=== PATIENT | male | born 1960 | race American Indian/Alaskan Native ===

== ENCOUNTER 2016-06-03 15:50 | Inpatient (IN) | payer MEDICARE, OTHER ==
--- NOTE | 2016-06-03 16:19 | Emergency Department Report ---
Chief Complaint: Extremity Problem,Nontraumatic Stated Complaint: POSS BLOOD CLOT - HPI History of Present Illness: Patient states sent here by his for possible blood clot in left leg. States having leg leg pain and swelling x about 1 week. - Exam Vital Signs: Vital Signs 06/03/16 16:00 Temperature 98.6 F Pulse Rate 78 Respiratory 20 Rate Blood Pressure 154/92 O2 Sat by Pulse 97 Oximetry Physical Exam: General: NAD. Extremity: Left calf tenderness. Mild pitting edema compared to right. MSE screening note: Focused history and physical exam performed. Due to findings the following was ordered: ED Medical Decision Making - Medical Decision Making Patient to see MD in main ED. ED Disposition for MSE Condition: Stable
[2016-06-03 16:46] LABS: Basophils % (Auto) 0.6 % (0.0-1.8); Eosinophils % (Auto) 4.6 % (0.0-4.3); Hematocrit 34.9 % (35.5-45.6); Hemoglobin 11.4 gm/dl (11.8-15.2); Mean Corpuscular HGB Conc 33 % (32-34); Mean Corpuscular Hemoglobin 30 pg (28-32); Mean Corpuscular Volume 91 fl (84-94); Platelet Count 185 K/mm3 (140-440); Red Blood Count 3.86 M/mm3 (3.65-5.03); Red Cell Distribution Width 13.6 % (13.2-15.2); White Blood Count 8.8 K/mm3 (4.5-11.0)
[2016-06-03 16:57] LABS: INR 1.16 (0.87-1.13); Partial Thromboplastin Time 29.4 Sec. (24.2-36.6)
[2016-06-03 17:05] LABS: Alanine Aminotransferase 15 units/L (7-56); Albumin 3.9 g/dL (3.9-5); Alkaline Phosphatase 46 units/L (35-129); BUN/Creatinine Ratio 16.25; Bilirubin,Total 0.4 mg/dL (0.1-1.2); Blood Urea Nitrogen 13 mg/dL (9-20); Calcium 8.9 mg/dL (8.4-10.2); Carbon Dioxide 25 mmol/L (22-30); Chloride 100.4 mmol/L (98-107); Glucose 106 mg/dL (75-100); Potassium 4.2 mmol/L (3.6-5.0); Sodium 138 mmol/L (137-145); Total Protein 7.9 g/dL (6.3-8.2)
[2016-06-03 17:08] LABS: Anion Gap 17 mmol/L
--- NOTE | 2016-06-03 19:54 | Emergency Department Report ---
ED General Adult HPI - General Chief complaint: Extremity Problem,Nontraumatic Stated complaint: POSS BLOOD CLOT Time Seen by Provider: 06/03/16 19:51 Source: patient, old records reviewed Mode of arrival: Ambulatory Limitations: No Limitations - History of Present Illness Initial comments: This is a 55-year-old male, previously unknown to me. His primary care doctor is Dr. Pascale Wood. He is sent to the ER to rule out left lower extremity DVT. He presents to the ER complaining atraumatic left lower extremity pain and swelling for the past week. The pain is sharp. It increases with palpation and range of motion, and decreases with rest. Pain is in the left posterior calf. No hematemesis, no bright red blood per rectum, no history of intracranial hemorrhage. There is no chest pain, there is no shortness of breath. No recent trips greater than 4 hours, no recent hospital admissions. Patient reports a family history of DVT, secondary to surgeries, but as far as he knows, no one in his family has had an unprovoked lower extremity DVT. On review of systems, the patient admits to epigastric and upper quadrant abdominal pain, which she describes as "gas", present for the past 2 weeks. It worsens when he eats, and decreases when he "rubs my stomach." There is no lower abdominal pain. -: Gradual Location: right, lower extremity Severity scale (0 -10): 10 Quality: aching Consistency: intermittent Improves with: rest Worsens with: movement Associated Symptoms: denies: confusion, chest pain, cough, diaphoresis, fever/ chills, headaches, loss of appetite, malaise, nausea/vomiting, rash, seizure, shortness of breath, syncope, weakness - Related Data Home Medications Medication Instructions Recorded Confirmed Last Taken Losartan [Cozaar] 25 mg PO QDAY 06/04/16 06/04/16 Unknown Allergies Allergy/AdvReac Type Severity Reaction Status Date / Time honey AdvReac Nausea Verified 05/07/15 17:54 ED Review of Systems ROS: Stated complaint: POSS BLOOD CLOT Other details as noted in HPI Constitutional: denies: fever Eyes: denies: vision change ENT: denies: epistaxis Respiratory: see HPI Cardiovascular: denies: chest pain Gastrointestinal: abdominal pain. denies: melena, hematochezia Genitourinary: denies: urgency, dysuria Musculoskeletal: arthralgia, myalgia Skin: denies: rash, lesions Neurological: denies: headache, weakness, paresthesias ED Past Medical Hx - Past Medical History Hx Hypertension: Yes Additional medical history: fractured neck, cervical radiculopathy - Surgical History Additional Surgical History: neck surgery x 2 - Social History Smoking Status: Never Smoker Substance Use Type: Alcohol, Prescribed - Medications Home Medications: Home Medications Medication Instructions Recorded Confirmed Last Taken Type Losartan [Cozaar] 25 mg PO QDAY 06/04/16 06/04/16 Unknown History ED Physical Exam - General Limitations: No Limitations, Physical Limitation General appearance: alert, in no apparent distress - Head Head exam: Present: atraumatic, normocephalic - Eye Eye exam: Present: normal appearance, EOMI. Absent: nystagmus - ENT ENT exam: Present: normal exam, normal orophraynx, mucous membranes moist - Neck Neck exam: Present: normal inspection, full ROM. Absent: tenderness, meningismus - Respiratory Respiratory exam: Present: normal lung sounds bilaterally. Absent: respiratory distress, wheezes, rales, rhonchi, stridor, chest wall tenderness - Cardiovascular Cardiovascular Exam: Present: regular rate, normal rhythm, normal heart sounds. Absent: bradycardia, tachycardia, irregular rhythm, systolic murmur, diastolic murmur, rubs, gallop - GI/Abdominal GI/Abdominal exam: Present: soft, normal bowel sounds. Absent: distended, tenderness, guarding, rebound, rigid, pulsatile mass - Rectal Rectal exam: Present: deferred - Extremities Exam Extremities exam: Present: full ROM, tenderness, normal capillary refill, calf tenderness, other (the right lower extremity is within normal limits. The bilateral upper extremities are within normal limits. There are 2+ pulses and for hemorrhage. The left calf is tender. It is slightly swollen. The compartments are soft. There is no pain with passive range of motion of the great toe.). Absent: pedal edema, joint swelling - Back Exam Back exam: Present: normal inspection, full ROM. Absent: tenderness, CVA tenderness (R), CVA tenderness (L), muscle spasm - Neurological Exam Neurological exam: Present: alert, oriented X3, other (Extraocular movements intact. Tongue midline. No facial droop. Facial sensation intact to light touch in the V1, V2, V3 distribution bilaterally. 5 and 5 strength in 4 extremities.. Sensation is intact to light touch in 4 extremities.). Absent: motor sensory deficit - Psychiatric Psychiatric exam: Present: normal affect, normal mood - Skin Skin exam: Present: warm, dry, intact, normal color. Absent: rash ED Course Vital Signs 06/03/16 06/03/16 06/03/16 16:00 19:46 19:53 Temperature 98.6 F 98.1 F Pulse Rate 78 79 Respiratory 20 18 Rate Blood Pressure 154/92 Blood Pressure 149/82 [Left] O2 Sat by Pulse 97 100 100 Oximetry 06/03/16 06/03/16 06/03/16 20:00 21:00 22:35 Temperature Pulse Rate 76 74 Respiratory 14 13 Rate Blood Pressure 147/86 163/89 Blood Pressure [Left] O2 Sat by Pulse 100 100 100 Oximetry 06/03/16 06/03/16 06/04/16 23:00 23:02 00:01 Temperature Pulse Rate Respiratory Rate Blood Pressure 153/84 147/86 140/82 Blood Pressure [Left] O2 Sat by Pulse 100 100 99 Oximetry 06/04/16 01:00 Temperature Pulse Rate Respiratory Rate Blood Pressure 144/82 Blood Pressure [Left] O2 Sat by Pulse 100 Oximetry - Reevaluation(s) Reevaluation #1: 06/03/16 20:37 Differential diagnosis: Left lower extremity DVT, IVC thrombosis, iliac vein thrombosis, pulmonary and was, GERD/gastritis Assessment and plan: [id number] male with unprovoked left lower extremity DVT , does not have any contraindications to systemic anticoagulation. On review of systems he describes nonspecific abdominal pain. His abdomen is nontender, but given that he has an unprovoked lower extremity DVT, we will obtain CAT scan of the chest, abdomen, pelvis to exclude occult thromboembolic disease. Assuming CAT scans do not demonstrate any significant disease, he will be discharged with systemic anticoagulation. I have discussed the case with Dr. Bah, the product safety professional superintendent transportation. She recommends initiation of Lovenox, 1 mg /kg twice daily, and reports that she can see the patient this Wednesday in the [place] office. Reevaluation #2: 06/04/16 01:12 ct shows multiple pulmonary emboli ct abd pelvis suggest pancreatic mass patient to be admitted Dr Burch accepts patient ED Medical Decision Making - Lab Data Result diagrams: 06/03/16 16:27 06/03/16 16:27 Vital Signs 06/03/16 06/03/16 16:00 19:53 Temperature 98.6 F 98.1 F Pulse Rate 78 79 Respiratory 20 21 Rate Blood Pressure 154/92 Blood Pressure 149/82 [Left] O2 Sat by Pulse 97 100 Oximetry Lab Results 06/03/16 06/03/16 06/03/16 Range/Units 16:15 16:27 16:27 WBC 8.8 (4.5-11.0) K/mm3 RBC 3.86 (3.65-5.03) M/mm3 Hgb 11.4 L (11.8-15.2) gm/dl Hct 34.9 L (35.5-45.6) % MCV 91 (84-94) fl MCH 30 (28-32) pg MCHC 33 (32-34) % RDW 13.6 (13.2-15.2) % Plt Count 185 (140-440) K/mm3 Lymph % (Auto) 28.6 (13.4-35.0) % Sabine % (Auto) 8.9 H (0.0-7.3) % Eos % (Auto) 4.6 H (0.0-4.3) % Baso % (Auto) 0.6 (0.0-1.8) % Lymph # 2.5 (1.2-5.4) K/mm3 Sabine # 0.8 (0.0-0.8) K/mm3 Eos # 0.4 (0.0-0.4) K/mm3 Baso # 0.0 (0.0-0.1) K/mm3 Seg Neutrophils % 57.3 (40.0-70.0) % Seg Neutrophils # 5.1 (1.8-7.7) K/mm3 PT 14.7 (12.2-14.9) Sec. INR 1.16 H (0.87-1.13) APTT 29.4 (24.2-36.6) Sec. Sodium (137-145) mmol/L Potassium (3.6-5.0) mmol/L Chloride (98-107) mmol/L Carbon Dioxide (22-30) mmol/L Anion Gap mmol/L BUN (9-20) mg/dL Creatinine (0.8-1.5) mg/dL Estimated GFR ml/min BUN/Creatinine Ratio % Glucose (75-100) mg/dL Calcium (8.4-10.2) mg/dL Total Bilirubin (0.1-1.2) mg/dL AST (5-40) units/L ALT (7-56) units/L Alkaline Phosphatase (35-129) units/L Total Protein (6.3-8.2) g/dL Albumin (3.9-5) g/dL Albumin/Globulin Ratio % Blood Type O POSITIVE Antibody Screen Negative 06/03/16 Range/Units 16:27 WBC (4.5-11.0) K/mm3 RBC (3.65-5.03) M/mm3 Hgb (11.8-15.2) gm/dl Hct (35.5-45.6) % MCV (84-94) fl MCH (28-32) pg MCHC (32-34) % RDW (13.2-15.2) % Plt Count (140-440) K/mm3 Lymph % (Auto) (13.4-35.0) % Sabine % (Auto) (0.0-7.3) % Eos % (Auto) (0.0-4.3) % Baso % (Auto) (0.0-1.8) % Lymph # (1.2-5.4) K/mm3 Sabine # (0.0-0.8) K/mm3 Eos # (0.0-0.4) K/mm3 Baso # (0.0-0.1) K/mm3 Seg Neutrophils % (40.0-70.0) % Seg Neutrophils # (1.8-7.7) K/mm3 PT (12.2-14.9) Sec. INR (0.87-1.13) APTT (24.2-36.6) Sec. Sodium 138 (137-145) mmol/L Potassium 4.2 (3.6-5.0) mmol/L Chloride 100.4 (98-107) mmol/L Carbon Dioxide 25 (22-30) mmol/L Anion Gap 17 mmol/L BUN 13 (9-20) mg/dL Creatinine 0.8 (0.8-1.5) mg/dL Estimated GFR > 60 ml/min BUN/Creatinine Ratio 16.25 % Glucose 106 H (75-100) mg/dL Calcium 8.9 (8.4-10.2) mg/dL Total Bilirubin 0.4 (0.1-1.2) mg/dL AST 17 (5-40) units/L ALT 15 (7-56) units/L Alkaline Phosphatase 46 (35-129) units/L Total Protein 7.9 (6.3-8.2) g/dL Albumin 3.9 (3.9-5) g/dL Albumin/Globulin Ratio 1.0 % Blood Type Antibody Screen - Radiology Data Radiology results: report reviewed LIVE [facility] [place],JOSH Domingo JR Male : 1960 MedRec# [id number] 06/03/16 16:58 - Radiology Dept. Note by TREV ROBERTSON Acct Num: [id number] : 1960 Patient Age: 55 VASCULAR LAB PRELIMINARY REPORT LLE VENOUS DOPPLER COMPLETED ACUTE DVT NOTED IN LT POP V EXTENDING TO PERONEAL V ER RANCH HAND (BHAVYA) INFORMED Initialized on 06/03/16 16:58 - END OF NOTE Critical care attestation.: If time is entered above; I have spent that time in minutes in the direct care of this critically ill patient, excluding procedure time. ED Disposition Clinical Impression: DVT (deep venous thrombosis), Pulmonary embolism, Pancreatic mass Disposition: OP ADMITTED IP TO THIS HOSP Is pt being admited?: Yes Does the pt Need Aspirin: No Condition: Good Instructions: Deep Venous Thrombosis (ED) Additional Instructions: Ultrasound of the left lower extremity demonstrated acute DVT/blood clot in the leg. Take the Lovenox medication as directed. This medication increases her risk for internal bleeding. Risks include bleeding in the brain, bleeding in the intestines, which can be dangerous or life-threatening. Therefore, do not take medications such as aspirin, ibuprofen, Motrin or Aleve. Avoid contact sports, and avoid consumption of alcohol. It is very important that he follow-up with the outpatient product safety professional, Dr. Bah. She would like to see you in the office this Wednesday in the office. Contact information is as follows: [facility] [address] [facility] [address], [place] [address] Not following up in a timely fashion may result in an undiagnosed tumor/cancer/ emergency which can be a cause of left lower extremity DVT. Therefore, please make certain to follow-up with her in a timely fashion. Return to the ER right away with headache, chest pain, abdominal pain, shortness of breath, vomiting blood, defecating blood, change in mental status, projectile vomiting. Referrals: PRIMARY CARE, [Primary Care Provider] - 3-5 Days RAFIF BAH MD [Staff Physician] - 3-5 Days
[2016-06-03] MEDS ORDERED: ROXICODONE PO ONE (20:02)
[2016-06-03] MEDS ORDERED: NACL 0.9% 1000 ML 1,000 ML IV ONE (20:02)
[2016-06-03] MEDS ORDERED: NACL ONE (20:29)
[2016-06-03] MEDS ORDERED: LOVENOX SUB-Q STA (22:29)
--- NOTE | 2016-06-04 00:04 | Cat Scan Report ---
FINAL REPORT EXAM: CT ANGIO CHEST HISTORY: lle dvt ? pe TECHNIQUE: Spiral CTA of the chest after the uneventful administration of IV contrast. Multiplanar reformations. PRIORS: None. FINDINGS: Chest: Multiple endoluminal filling defects in the bilateral interlobar or segmental and subsegmental pulmonary arteries, most pronounced in the left lower lobe. Main pulmonary trunk normally opacified. No apparent aneurysm, pseudoaneurysm or aortic dissection. No significant lymph node enlargement or axillary adenopathy. Lungs show mild and patchy, somewhat rounded and pleural-based opacities in the left posterior lung base. No discrete parenchymal mass, other focal consolidation or pleural effusions. No apparent pneumothorax. Upper abdomen will be evaluated on dedicated CT abdomen and pelvis examination of same date. IMPRESSION: 1. Findings compatible bilateral pulmonary emboli. Mild clot burden. 2. Findings which may represent patchy left basilar atelectasis, mild infiltrate or possible parenchymal infarct. Clinical correlation and followup suggested. Dr. Prado discussed results with Dr. Eldridge on 03 June 2016 at approximately 2357 hours EST.
--- NOTE | 2016-06-04 00:15 | Cat Scan Report ---
FINAL REPORT EXAM: CT ABDOMEN PELVIS W CON HISTORY: lle dvt abd pain TECHNIQUE: Spiral CT scanning of the abdomen and pelvis after the uneventful administration of IV contrast. Multiplanar reformations. PRIORS: None. FINDINGS: Abdomen: Visualized lung bases reported on CTA chest examination of same date. No radiopaque gallstones. Small and subtle, hypodense foci in right and left lobes, largest in left lobe measuring 6-7 mm, nonspecific. Spleen without significant abnormality. Ill-defined and possibly multifocal, hypodense mass involving most of pancreatic head and extending into the uncinate process difficult to measure, but approximating 3 x 3 cm in the anterior head and 3.5 x 2 cm in the uncinate process, respectively. Pancreatic duct dilatation noted distal to this region measuring up to 6-7 mm in diameter. Loss of normal fat planes in adjacent pancreaticoduodenal region. Enlarged lymph nodes in the surrounding central mesentery measuring up to 2 cm in maximal diameter. Right renal cysts x2, largest measuring 2.7 cm. Left kidney grossly unremarkable. Adrenal glands without significant abnormality. Pelvis: Bowel grossly unremarkable. Appendix is not confidently identified. No significant free peritoneal fluid or discrete abscess. Abdominal aorta non-aneurysmal. Punctate, metallic density in left paraspinal musculature at approximate L3-4 level may represent retained foreign body or possible postsurgical change. IMPRESSION: 1. Ill-defined and heterogeneous soft tissue mass in pancreatic head and uncinate process, with distal pancreatic duct dilatation and adenopathy in the surrounding central mesentery. Clinical correlation and followup suggested. 2. Subtle, subcentimeter hypodense foci x2 in the liver of uncertain etiology or significance. However, metastatic disease cannot be completely excluded. 3. Right renal cysts. Dr. Prado discussed results with Dr. Eldridge on 03 June 2016 at approximately 2357 hours. EST.
[2016-06-04] MEDS ORDERED: MORPHINE IV ONE (00:25)
--- NOTE | 2016-06-04 01:33 | Admit Criteria Form ---
Admission Criteria Documentation: DEEP VENOUS THROMBOSIS OF LOWER EXTREMITIES Clinical Indications for Admission to Inpatient Care ( Place 'X' for any and all applicable criteria): Admission is indicated for ANY ONE of the following (1)(2)(3)(4): [ X]I. Documented extensive thrombosis (e.g., clot in vena cava or above iliofemoral bifurcation) [ ]II. Limb-threatening thrombosis (e.g., phlegmasia cerulea dolens) [ ]III. Active bleeding [ ]IV. Recent surgery (e.g., within 6 weeks) [ ]V. Active peptic ulcer disease [ ]. Thrombosis while on anticoagulation [ ]VII. [ ]VIII. Appropriate monitoring and therapy cannot be provided in home or outpatient setting [ ]IX. Thrombolysis (e.g., catheter-directed) or pharmaco mechanical thrombectomy needed (3) [ ]X. Vena cava filter placement planned (3) [ ]XI. Severely diminished cardiopulmonary reserve (e.g., pulmonary hypertension) [ ]XII. Severe renal failure (e.g., GFR less than 30 mL/min/1.73m2 (0.5 mL/sec /1.73m2)) [ ]XIII. Known clotting abnormality or deficiency (antithrombin III, protein C , or protein S) [ ]XIV. History of heparin-induced thrombocytopenia [ ]XV . Personal or family history of bleeding tendency or familial bleeding disorder that requires inpatient admission rather than observation care (Also use Deep Venous Thrombosis of Lower Extremities: Observation Care as appropriate) because of ANY ONE of the following: [ ]a) Significant allergic, autoimmune (thrombocytopenia), or coagulopathic reaction occurs in response to anticoagulation [ ]b) Other significant finding or clinical condition judged not to be within the scope of observation care Extended stay beyond goal length of stay may be needed for(1)(19): [ ]a) Hemorrhage or recent surgery(3) [ ]b) Inadequate oral anticoagulation [ ]c) Recurrent thromboembolism(3) [ ]d) Heparin-induced thrombocytopenia(14) The original [facility] content created by [facility] has been revised. The portions of the content which have been revised are identified through the use of italic text or in bold, and [facility] has neither reviewed nor approved the modified material. All other unmodified content is copyright [facility]. Please see references footnoted in the original [facility] edition 2016 Admission Criteria Met: Yes
[2016-06-04] MEDS ORDERED: TYLENOL PO PRN (02:26)
[2016-06-04] MEDS ORDERED: D50W (25GM) IV PRN (02:26)
[2016-06-04] MEDS ORDERED: MILK OF MAGNESIA PO PRN (02:26)
[2016-06-04] MEDS ORDERED: ZOFRAN IV PRN (02:26)
[2016-06-04] MEDS ORDERED: DULCOLAX PR PRN (02:26)
--- NOTE | 2016-06-04 03:10 | History and Physical Report ---
History of Present Illness Date of examination: 06/04/16 Date of admission: 06/04/16 02:26 History of present illness: 55-year-old man history of hypertension, diabetes comes emergency room with complaints of shortness of breath and left pleuritic chest pain 2 weeks. He is also have been having leg pain bilateral 2 months, his symptoms worsened over the last few days, he had difficulty ambulating. stated that his legs of become swollen. He had recent travel to [place], he was evaluated there and was discharged from the emergency room. He was seen by his primary care physician today who sent him to the emergency room for Doppler of the lower extremity which came back positive for DVT Patient denies palpitation, cough, abdominal pain, hematochezia, dysuria, frequency, focal weakness, dysarthria, fever chills, polydipsia polyuria, hot or cold intolerance, easy bruisability, or rash or bleeding from mucosal membrane, rhinorrhea, epistaxis, earache, tinnitus, blurry vision, eye discharge , anxiety, depression. Other review of systems negative PAST SURGICAL HISTORY: Neck Surgery, appendectomy SOCIAL HISTORY: Denies alcohol, tobacco, drugs FAMILY HISTORY: Hypertension Medications and Allergies Allergies Allergy/AdvReac Type Severity Reaction Status Date / Time honey AdvReac Nausea Verified 05/07/15 17:54 Home Medications Medication Instructions Recorded Confirmed Last Taken Type Losartan [Cozaar] 25 mg PO QDAY 06/04/16 06/04/16 Unknown History Active Meds: Active Medications Acetaminophen (Tylenol) 650 mg PO Q4H PRN PRN Reason: Pain MILD(1-3)/Fever >100.5/TIDWELL Bisacodyl (Dulcolax) 10 mg ND QDAY PRN PRN Reason: Constipation unrelieved by MOM Dextrose (D50w (25gm)) 50 ml IV PRN PRN PRN Reason: Hypoglycemia Insulin Aspart (Novolog) 0 units SUB-Q ACHS CATHERINE PRN Reason: Protocol Magnesium Hydroxide (Milk Of Magnesia) 30 ml PO Q4H PRN PRN Reason: Constipation Morphine Sulfate (Morphine) 2 mg IV Q4H PRN PRN Reason: Pain, Moderate (4-6) Ondansetron HCl (Zofran) 4 mg IV Q8H PRN PRN Reason: N/V unrelieved by Reglan Exam - Physical Exam Narrative exam: Gen. appearance: Patient lying in bed, no apparent distress HEENT: Normocephalic, atraumatic, pupils equally round and reactive to light, extraocular movement intact, and no sclericterus,. No JVD or thyromegaly or nodule,neck supple, no carotid bruit ,mucous membranes moist, no exudate or erythema Heart: S1, S2, regular rate and rhythm Lungs: Clear to auscultation bilaterally, breathing comfortable Abdomen: Positive bowel sounds, nontender, nondistended, no organomegaly Extremity: Left leg swelling, warm to touch ,no cyanosis, clubbing Skin: No rash, nodules, warm, dry Neuro: Oriented 3, cranial nerves II-12 intact, speech is fluent, motor and sensory intact - Constitutional Vitals: Temp Pulse Resp BP Pulse Ox 98.1 F 74 13 144/82 100 06/03/16 19:53 06/03/16 21:00 06/03/16 21:00 06/04/16 01:00 06/04/16 01:00 Results - Labs CBC & Chem 7: 06/03/16 16:27 06/03/16 16:27 - Imaging and Cardiology EKG: image reviewed CT scan - abdomen: report reviewed CT scan - chest: report reviewed CT scan - pelvis: report reviewed Assessment and Plan Acute bilateral pulmonary emboli/DVT Hypertension Diabetes type 2 Start full dose Lovenox Check fingersticks initiate insulin sliding scale, start IV morphine Continue appropriate outpatient medications
[2016-06-04] MEDS ORDERED: TORADOL IV ONE (04:30)
[2016-06-04] MEDS ORDERED: LOVENOX SUB-Q SCH (10:00)
[2016-06-04] MEDS: MORPHINE IV PRN ×2 (12:30→16:20)
[2016-06-04] MEDS: ELIQUIS PO SCH ×2 (14:34→21:51)
[2016-06-04] MEDS: NOVOLOG SUB-Q SCH ×4 (14:34→21:51)
--- NOTE | 2016-06-04 17:15 | Vascular Lab Report ---
Left Lower Extremity Venous Duplex Study: Reason for Exam: Pain and swelling of the left lower extremity. Comments on the Right: A limited duplex study was done of the proximal veins of the right lower extremity. All veins visualized are freely compressible without evidence of internal echogenicity. Flow is spontaneous and phasic throughout. No evidence of acute or chronic thrombus is seen in any of the vessels visualized. Comments on the Left: Deep venous thrombosis is noted starting in the peroneal vein and extending to the above-knee popliteal vein.. The remaining veins visualized are freely compressible without evidence of internal echogenicity. Spontaneous and phasic flow is present proximally. Impression: Deep venous thrombosis in the left lower extremity
--- NOTE | 2016-06-05 04:29 | Event Note ---
Date: 06/04/16 Pt seen and evaluated while boarding in ED. No significant new physical exam findings. Discussed care plan with and patient. Pt elects to have eliquis for treatment of VTE.
[2016-06-05 05:43] LABS: Basophils % (Auto) 0.4 % (0.0-1.8); Hematocrit 31.9 % (35.5-45.6); Hemoglobin 10.5 gm/dl (11.8-15.2); Mean Corpuscular HGB Conc 33 % (32-34); Mean Corpuscular Hemoglobin 30 pg (28-32); Mean Corpuscular Volume 91 fl (84-94); Platelet Count 196 K/mm3 (140-440); Red Blood Count 3.51 M/mm3 (3.65-5.03); Red Cell Distribution Width 13.4 % (13.2-15.2); White Blood Count 6.4 K/mm3 (4.5-11.0)
[2016-06-05 06:09] LABS: Anion Gap 18 mmol/L; BUN/Creatinine Ratio 16.25; Blood Urea Nitrogen 13 mg/dL (9-20); Calcium 8.5 mg/dL (8.4-10.2); Carbon Dioxide 24 mmol/L (22-30); Chloride 102.1 mmol/L (98-107); Glucose 119 mg/dL (75-100); Potassium 3.9 mmol/L (3.6-5.0); Sodium 140 mmol/L (137-145)
[2016-06-05] MEDS: NOVOLOG SUB-Q SCH ×3 (08:00→21:02)
[2016-06-05] MEDS: ELIQUIS PO SCH ×2 (10:33→21:00)
[2016-06-05] MEDS: PERCOCET 5/325 PO PRN ×2 (13:59→21:00)
--- NOTE | 2016-06-05 15:40 | Progress Note ---
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 Medical records and medication list reviewed. No acute event overnight noted by the RN. Patient denies any chest pain or difficulty breathing. Patient is tolerating diet. No acute bleeding episode. Discussed plan of care at bedside with patient. Hospitalist Physical - Physical exam Narrative exam: GENERAL: well-developed and well-nourished AAM lying on bed appeared to be in no discomfort. HEENT: Normocephalic. Atraumatic. No conjunctival congestion or icterus. Patient has moist mucous membranes. NECK: Supple. Trachea midline. CHEST/LUNGS: Clear to auscultated bilaterally, breathing nonlabored. No wheezes crackles or rhonchi. HEART/CARDIOVASCULAR: Regular in rate and rhythm. S1 and S2 positive. ABDOMEN: Abdomen is soft, nontender. Patient has normal bowel sounds. SKIN: There is no rash. Warm and dry. NEURO: No focal motor deficit. Follows command. MUSCULOSKELETAL: No joint effusion or tenderness. EXTRIMITY: No edema, no cyanosis or clubbing. PSYCH: Cooperative. - Constitutional Vitals: Temp Pulse Resp BP Pulse Ox 98.0 F 71 16 134/72 98 06/05/16 08:08 06/05/16 08:08 06/05/16 08:08 06/05/16 08:08 06/05/16 10:56 Results - Labs CBC & Chem 7: 06/05/16 05:05 06/05/16 05:05 Labs: Laboratory Last Values WBC 6.4 K/mm3 (4.5-11.0) 06/05/16 05:05 RBC 3.51 M/mm3 (3.65-5.03) L 06/05/16 05:05 Hgb 10.5 gm/dl (11.8-15.2) L 06/05/16 05:05 Hct 31.9 % (35.5-45.6) L 06/05/16 05:05 MCV 91 fl (84-94) 06/05/16 05:05 MCH 30 pg (28-32) 06/05/16 05:05 MCHC 33 % (32-34) 06/05/16 05:05 RDW 13.4 % (13.2-15.2) 06/05/16 05:05 Plt Count 196 K/mm3 (140-440) 06/05/16 05:05 Lymph % (Auto) 32.7 % (13.4-35.0) 06/05/16 05:05 [place] % (Auto) 9.5 % (0.0-7.3) H 06/05/16 05:05 Eos % (Auto) 8.0 % (0.0-4.3) H 06/05/16 05:05 Baso % (Auto) 0.4 % (0.0-1.8) 06/05/16 05:05 Lymph # 2.1 K/mm3 (1.2-5.4) 06/05/16 05:05 [place] # 0.6 K/mm3 (0.0-0.8) 06/05/16 05:05 Eos # 0.5 K/mm3 (0.0-0.4) H 06/05/16 05:05 Baso # 0.0 K/mm3 (0.0-0.1) 06/05/16 05:05 Seg Neutrophils % 49.4 % (40.0-70.0) 06/05/16 05:05 Seg Neutrophils # 3.2 K/mm3 (1.8-7.7) 06/05/16 05:05 PT 14.7 Sec. (12.2-14.9) 06/03/16 16:27 INR 1.16 (0.87-1.13) H 06/03/16 16:27 APTT 29.4 Sec. (24.2-36.6) 06/03/16 16:27 Sodium 140 mmol/L (137-145) 06/05/16 05:05 Potassium 3.9 mmol/L (3.6-5.0) 06/05/16 05:05 Chloride 102.1 mmol/L (98-107) 06/05/16 05:05 Carbon Dioxide 24 mmol/L (22-30) 06/05/16 05:05 Anion Gap 18 mmol/L 06/05/16 05:05 BUN 13 mg/dL (9-20) 06/05/16 05:05 Creatinine 0.8 mg/dL (0.8-1.5) 06/05/16 05:05 Estimated GFR > 60 ml/min 06/05/16 05:05 BUN/Creatinine Ratio 16.25 % 06/05/16 05:05 Glucose 119 mg/dL (75-100) H 06/05/16 05:05 POC Glucose 172 (70-105) H 06/05/16 11:53 Calcium 8.5 mg/dL (8.4-10.2) 06/05/16 05:05 Total Bilirubin 0.4 mg/dL (0.1-1.2) 06/03/16 16:27 AST 17 units/L (5-40) 06/03/16 16:27 ALT 15 units/L (7-56) 06/03/16 16:27 Alkaline Phosphatase 46 units/L (35-129) 06/03/16 16:27 Total Protein 7.9 g/dL (6.3-8.2) 06/03/16 16:27 Albumin 3.9 g/dL (3.9-5) 06/03/16 16:27 Albumin/Globulin Ratio 1.0 % 06/03/16 16:27 Lipase 141 units/L (13-60) H 06/04/16 00:20 Blood Type O POSITIVE 06/03/16 16:15 Antibody Screen Negative 06/03/16 16:15
--- NOTE | 2016-06-05 17:39 | Consultation ---
History of Present Illness Consult date: 06/05/16 Requesting physician: JETHRO JAMISON Reason for consult: pulmonary embolism History of present illness: 55 yo admitted w/ increased swelling and pain LLE with mild increased SOB. No chest pain, wheezing, fevers, chills, sputum, hemoptysis. No personal or family hx of VTE. Took a car trip to [place] recently. Drinks EtOH occ. Active Medications Acetaminophen (Tylenol) 650 mg PO Q4H PRN PRN Reason: Pain MILD(1-3)/Fever >100.5/TIDWELL Apixaban (Eliquis) 10 mg PO Q12HR CATHERINE Stop: 06/10/16 22:01 Last Admin: 06/05/16 10:33 Dose: 10 mg Apixaban (Eliquis) 5 mg PO Q12HR CATHERINE Bisacodyl (Dulcolax) 10 mg SD QDAY PRN PRN Reason: Constipation unrelieved by MOM Dextrose (D50w (25gm)) 50 ml IV PRN PRN PRN Reason: Hypoglycemia Insulin Aspart (Novolog) 0 units SUB-Q ACHS CATHERINE PRN Reason: Protocol Last Admin: 06/05/16 08:00 Dose: Not Given Magnesium Hydroxide (Milk Of Magnesia) 30 ml PO Q4H PRN PRN Reason: Constipation Morphine Sulfate (Morphine) 2 mg IV Q4H PRN PRN Reason: Pain, Moderate (4-6) Last Admin: 06/04/16 16:20 Dose: 2 mg Ondansetron HCl (Zofran) 4 mg IV Q8H PRN PRN Reason: N/V unrelieved by Reglan Oxycodone/Acetaminophen (Percocet 5/325) 1 tab PO Q6H PRN PRN Reason: Pain, Moderate (4-6) Last Admin: 06/05/16 13:59 Dose: 1 tab Past History Past Medical History: other (HTN) 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 denies: smoking, alcohol abuse, prescription drug abuse, IV drug use Family history: other (No VTE) Medications and Allergies Allergies Allergy/AdvReac Type Severity Reaction Status Date / Time honey AdvReac Nausea Verified 05/07/15 17:54 Home Medications Medication Instructions Recorded Confirmed Last Taken Type Losartan [Cozaar] 25 mg PO QDAY 06/04/16 06/04/16 Unknown History Active Meds: Active Medications Acetaminophen (Tylenol) 650 mg PO Q4H PRN PRN Reason: Pain MILD(1-3)/Fever >100.5/TIDWELL Apixaban (Eliquis) 10 mg PO Q12HR CATHERINE Stop: 06/10/16 22:01 Last Admin: 06/05/16 10:33 Dose: 10 mg Apixaban (Eliquis) 5 mg PO Q12HR CATHERINE Bisacodyl (Dulcolax) 10 mg SD QDAY PRN PRN Reason: Constipation unrelieved by MOM Dextrose (D50w (25gm)) 50 ml IV PRN PRN PRN Reason: Hypoglycemia Insulin Aspart (Novolog) 0 units SUB-Q ACHS CATHERINE PRN Reason: Protocol Last Admin: 06/05/16 08:00 Dose: Not Given Magnesium Hydroxide (Milk Of Magnesia) 30 ml PO Q4H PRN PRN Reason: Constipation Morphine Sulfate (Morphine) 2 mg IV Q4H PRN PRN Reason: Pain, Moderate (4-6) Last Admin: 06/04/16 16:20 Dose: 2 mg Ondansetron HCl (Zofran) 4 mg IV Q8H PRN PRN Reason: N/V unrelieved by Reglan Oxycodone/Acetaminophen (Percocet 5/325) 1 tab PO Q6H PRN PRN Reason: Pain, Moderate (4-6) Last Admin: 06/05/16 13:59 Dose: 1 tab Review of Systems All systems: negative (neg x 10 except as noted in HPI) Physical Examination Vital signs: Vital Signs Temp Pulse Resp BP Pulse Ox 98.6 F 78 20 154/92 97 06/03/16 16:00 06/03/16 16:00 06/03/16 16:00 06/03/16 16:00 06/03/16 16:00 General appearance: no acute distress, alert Eyes: non-icteric ENT: oropharynx moist Neck: supple Effort: normal Ascultation: Bilateral: clear Cardiovascular: regular rate and rhythm Gastrointestinal: normoactive bowel sounds, soft, non-tender, non-distended Integumentary: normal Extremities: no cyanosis, pink and warm, edema (non-pitting edema LLE) Musculoskeletal: no deformities normal mental status, non-focal exam, pupils equal and round, CN II-XII normal mood appropriate, affect normal Results - Laboratory Findings CBC and BMP: 06/05/16 05:05 06/05/16 05:05 PT/INR, D-dimer PT 14.7 Sec. (12.2-14.9) 06/03/16 16:27 INR 1.16 (0.87-1.13) H 06/03/16 16:27 Abnormal lab findings: Abnormal Labs 06/04/16 06/04/16 06/05/16 12:24 16:28 05:05 RBC 3.51 L Hgb 10.5 L Hct 31.9 L [place] % (Auto) 9.5 H Eos % (Auto) 8.0 H Eos # 0.5 H Glucose POC Glucose 176 H 62 L 06/05/16 06/05/16 06/05/16 05:05 07:19 11:53 RBC Hgb Hct [place] % (Auto) Eos % (Auto) Eos # Glucose 119 H POC Glucose 117 H 172 H - Diagnostic Findings Chest x-ray: report reviewed, image reviewed CT scan - chest: report reviewed, image reviewed Assessment and Plan Imp: 1. Acute PE/acute LLE DVT; concern for hypercoagulable state in setting of possible pancreatic malignancy 2. Pancreatic mass/liver nodules 3. HTN Rec: 1. Agree w/ Eliquis 2. GI consult; send CEA and CA19-9 3. Will follow Plan of care reviewed w/ patient/, they understand/agree Thanks for the consult.
[2016-06-06] MEDS: PERCOCET 5/325 PO PRN ×3 (08:45→22:08)
[2016-06-06] MEDS: NOVOLOG SUB-Q SCH ×4 (08:56→22:30)
--- NOTE | 2016-06-06 09:41 | Gastroenterology Consultation ---
History of Present Illness - Reason for Consult Consult date: 06/06/16 Pancreatic mass/liver hypodensities/DVT/PE Requesting physician: JETHRO JAMISON - History of Present Illness Mr. Alejandro is a pleasant 55yo man whom I have been asked to evaluate for abnormal CT scan, showing a pancreatic mass as well as hepatic hypodensities. He is admitted with a LLE DVT as well as PE and was started on Eliquis during admission. He had a recent car trip to [place] with subsequent travel to [place] (over the holidays). Approximately 2 weeks ago, he mentioned right leg pain and subsequent development of chest pain/SOB upon driving back to [place] from [place]. He was diagnosed with pleurisy and sent home. He returned home to [place] and developed left leg pain about 3 days ago. Outpatient doppler revealed presence of DVT. CT showed evidence of PE. Denzel also mentioned abdominal pain, so CT A/P was performed, which revealed an ill- defined multifocal mass in the head/uncinate process of the pancreas, measuring approximately 3cm. There was associated pancreatic ductal dilation and surrounding adenopathy, measuring up to 2cm. There were also 2 ill-defined hypodensities in the liver. Denzel denies any history of tobacco usage and states that he would "have a beer every once in awhile", but denies any heavy EtOH usage. He denies any weight loss, feeling full easily, fevers, chills, night sweats. No CP/SOB at this time. 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 denies: smoking, alcohol abuse, prescription drug abuse, IV drug use Family history: other (No VTE) Medications and Allergies Allergies Allergy/AdvReac Type Severity Reaction Status Date / Time honey AdvReac Nausea Verified 05/07/15 17:54 Home Medications Medication Instructions Recorded Confirmed Last Taken Type Losartan [Cozaar] 25 mg PO QDAY 06/04/16 06/04/16 Unknown History Active Meds: Active Medications Acetaminophen (Tylenol) 650 mg PO Q4H PRN PRN Reason: Pain MILD(1-3)/Fever >100.5/TIDWELL Apixaban (Eliquis) 10 mg PO Q12HR CATHERINE Stop: 06/10/16 22:01 Last Admin: 06/05/16 21:00 Dose: 10 mg Apixaban (Eliquis) 5 mg PO Q12HR CATHERINE Bisacodyl (Dulcolax) 10 mg [place] QDAY PRN PRN Reason: Constipation unrelieved by MOM Dextrose (D50w (25gm)) 50 ml IV PRN PRN PRN Reason: Hypoglycemia Insulin Aspart (Novolog) 0 units SUB-Q ACHS CATHERINE PRN Reason: Protocol Last Admin: 06/06/16 08:56 Dose: Not Given Magnesium Hydroxide (Milk Of Magnesia) 30 ml PO Q4H PRN PRN Reason: Constipation Morphine Sulfate (Morphine) 2 mg IV Q4H PRN PRN Reason: Pain, Moderate (4-6) Last Admin: 06/04/16 16:20 Dose: 2 mg Ondansetron HCl (Zofran) 4 mg IV Q8H PRN PRN Reason: N/V unrelieved by Reglan Oxycodone/Acetaminophen (Percocet 5/325) 1 tab PO Q6H PRN PRN Reason: Pain, Moderate (4-6) Last Admin: 06/06/16 08:45 Dose: 1 tab Review of Systems - Review of Systems All systems: negative (CP/SOB/leg pain/swelling/abdominal pain) Exam - Constitutional Vital Signs: Temp Pulse Resp BP Pulse Ox 97.7 F 78 20 144/76 97 06/06/16 08:00 06/06/16 08:53 06/06/16 08:53 06/06/16 08:00 06/06/16 08:53 General appearance: no acute distress - EENT Eyes: PERRL, other (sclerae anicteric) - Neck Neck: supple - Respiratory Respiratory: bilateral: CTA - Cardiovascular Rhythm: regular Heart Sounds: Present: S1 & S2 Extremities: abnormal (LLE edema/warmth) - Gastrointestinal General gastrointestinal: Present: soft, non-tender, non-distended, normal bowel sounds - Integumentary Integumentary: Present: clear - Neurologic Neurological: alert and oriented x3 - Psychiatric Psychiatric: appropriate mood/affect - Labs CBC & Chem 7: 06/05/16 05:05 06/05/16 05:05 Lab Results: Laboratory Results - last 24 hr 06/05/16 06/05/16 06/05/16 11:53 15:58 20:59 POC Glucose 172 H 105 133 H - Imaging CT Scan: report reviewed Assessment and Plan 55yo man admitted with LLE DVT as well as PE, started on Eliquis. He has evidence of a pancreatic mass on CT, which is suspicious for carcinoma with resultant hypercoag state. Rec: 1) OK to continue Eliquis 2) Agree with checking CA 19-9 3) Pt will need outpatient EUS with FNA of the pancreatic mass to make definitive dx 4) Based on above, will also consider referred to Dr. Elton Hawley (hepato- biliary surgeon) at [facility] Thank you for allowing me to participate in the care of your patient. Please do not hesitate to contact me with any questions.
[2016-06-06] MEDS: ELIQUIS PO SCH (10:09)
--- NOTE | 2016-06-06 10:48 | Progress Note ---
Assessment and Plan 1. Acute PE/acute LLE DVT; concern for hypercoagulable state in setting of possible pancreatic malignancy 2. Pancreatic mass/liver nodules 3. HTN Recommendations Continue standard anticoagulation. Follow-up on GI workup When deemed appropriate, ambulate patient on room air and monitor oximetry Consider baseline echocardiogram evaluation Subjective Date of service: 06/06/16 Principal diagnosis: pulmonary embolism, pancreatic lesion Interval history: The patient reports this morning to be feeling fine. No shortness of breath reported. No events overnight. No bleeding episodes reported Objective Vital Signs - 12hr 06/06/16 06/06/16 06/06/16 00:00 04:00 08:00 Temperature 98.6 F 98.2 F 97.7 F Pulse Rate 68 Pulse Rate [ Apical] Pulse Rate [ 70 68 72 Right] Respiratory 18 18 18 Rate Respiratory Rate [Left Calf ] Blood Pressure 155/73 137/70 144/76 [Right Arm] O2 Sat by Pulse 97 97 98 Oximetry 06/06/16 06/06/16 06/06/16 08:45 08:48 08:53 Temperature Pulse Rate Pulse Rate [ 78 Apical] Pulse Rate [ Right] Respiratory 20 20 Rate Respiratory 20 Rate [Left Calf ] Blood Pressure [Right Arm] O2 Sat by Pulse 97 Oximetry 06/06/16 09:45 Temperature Pulse Rate Pulse Rate [ Apical] Pulse Rate [ Right] Respiratory 20 Rate Respiratory Rate [Left Calf ] Blood Pressure [Right Arm] O2 Sat by Pulse Oximetry Constitutional: no acute distress, alert Eyes: non-icteric ENT: oropharynx moist Neck: supple Effort: normal Ascultation: Bilateral: clear Cardiovascular: regular rate and rhythm Gastrointestinal: normoactive bowel sounds, soft, non-tender, non-distended Integumentary: normal Extremities: no cyanosis, pink and warm, edema (non-pitting edema LLE) Neurologic: normal mental status, non-focal exam, pupils equal and round, CN II- XII normal Psychiatric: mood appropriate, affect normal CBC and BMP: 06/05/16 05:05 06/05/16 05:05 ABG, PT/INR, D-dimer: PT/INR, D-dimer PT 14.7 Sec. (12.2-14.9) 06/03/16 16:27 INR 1.16 (0.87-1.13) H 06/03/16 16:27 Abnormal lab findings: Abnormal Labs 06/04/16 06/04/16 06/05/16 12:24 16:28 05:05 RBC 3.51 L Hgb 10.5 L Hct 31.9 L [place] % (Auto) 9.5 H Eos % (Auto) 8.0 H Eos # 0.5 H Glucose POC Glucose 176 H 62 L 06/05/16 06/05/16 06/05/16 05:05 07:19 11:53 RBC Hgb Hct [place] % (Auto) Eos % (Auto) Eos # Glucose 119 H POC Glucose 117 H 172 H 06/05/16 20:59 RBC Hgb Hct [place] % (Auto) Eos % (Auto) Eos # Glucose POC Glucose 133 H
[2016-06-06] MEDS: COZAAR PO SCH (14:02)
--- NOTE | 2016-06-06 15:15 | Progress Note ---
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 Medical records and medication list reviewed. No acute event overnight noted by the RN. Patient denies any chest pain or difficulty breathing. Patient is tolerating diet. No acute bleeding episode. Discussed plan of care at bedside with patient. Hospitalist Physical - Physical exam Narrative exam: GENERAL: well-developed and well-nourished AAM lying on bed appeared to be in no discomfort. HEENT: Normocephalic. Atraumatic. No conjunctival congestion or icterus. Patient has moist mucous membranes. NECK: Supple. Trachea midline. CHEST/LUNGS: Clear to auscultated bilaterally, breathing nonlabored. No wheezes crackles or rhonchi. HEART/CARDIOVASCULAR: Regular in rate and rhythm. S1 and S2 positive. ABDOMEN: Abdomen is soft, nontender. Patient has normal bowel sounds. SKIN: There is no rash. Warm and dry. NEURO: No focal motor deficit. Follows command. MUSCULOSKELETAL: No joint effusion or tenderness. EXTRIMITY: No edema, no cyanosis or clubbing. PSYCH: Cooperative. - Constitutional Vitals: Temp Pulse Resp BP Pulse Ox 97.5 F L 72 20 158/90 98 06/06/16 12:00 06/06/16 14:02 06/06/16 14:02 06/06/16 14:02 06/06/16 12:00 Results - Labs CBC & Chem 7: 06/05/16 05:05 06/05/16 05:05 Labs: Laboratory Last Values WBC 6.4 K/mm3 (4.5-11.0) 06/05/16 05:05 RBC 3.51 M/mm3 (3.65-5.03) L 06/05/16 05:05 Hgb 10.5 gm/dl (11.8-15.2) L 06/05/16 05:05 Hct 31.9 % (35.5-45.6) L 06/05/16 05:05 MCV 91 fl (84-94) 06/05/16 05:05 MCH 30 pg (28-32) 06/05/16 05:05 MCHC 33 % (32-34) 06/05/16 05:05 RDW 13.4 % (13.2-15.2) 06/05/16 05:05 Plt Count 196 K/mm3 (140-440) 06/05/16 05:05 Lymph % (Auto) 32.7 % (13.4-35.0) 06/05/16 05:05 [place] % (Auto) 9.5 % (0.0-7.3) H 06/05/16 05:05 Eos % (Auto) 8.0 % (0.0-4.3) H 06/05/16 05:05 Baso % (Auto) 0.4 % (0.0-1.8) 06/05/16 05:05 Lymph # 2.1 K/mm3 (1.2-5.4) 06/05/16 05:05 [place] # 0.6 K/mm3 (0.0-0.8) 06/05/16 05:05 Eos # 0.5 K/mm3 (0.0-0.4) H 06/05/16 05:05 Baso # 0.0 K/mm3 (0.0-0.1) 06/05/16 05:05 Seg Neutrophils % 49.4 % (40.0-70.0) 06/05/16 05:05 Seg Neutrophils # 3.2 K/mm3 (1.8-7.7) 06/05/16 05:05 PT 14.7 Sec. (12.2-14.9) 06/03/16 16:27 INR 1.16 (0.87-1.13) H 06/03/16 16:27 APTT 29.4 Sec. (24.2-36.6) 06/03/16 16:27 Sodium 140 mmol/L (137-145) 06/05/16 05:05 Potassium 3.9 mmol/L (3.6-5.0) 06/05/16 05:05 Chloride 102.1 mmol/L (98-107) 06/05/16 05:05 Carbon Dioxide 24 mmol/L (22-30) 06/05/16 05:05 Anion Gap 18 mmol/L 06/05/16 05:05 BUN 13 mg/dL (9-20) 06/05/16 05:05 Creatinine 0.8 mg/dL (0.8-1.5) 06/05/16 05:05 Estimated GFR > 60 ml/min 06/05/16 05:05 BUN/Creatinine Ratio 16.25 % 06/05/16 05:05 Glucose 119 mg/dL (75-100) H 06/05/16 05:05 POC Glucose 133 (70-105) H 06/05/16 20:59 Calcium 8.5 mg/dL (8.4-10.2) 06/05/16 05:05 Total Bilirubin 0.4 mg/dL (0.1-1.2) 06/03/16 16:27 AST 17 units/L (5-40) 06/03/16 16:27 ALT 15 units/L (7-56) 06/03/16 16:27 Alkaline Phosphatase 46 units/L (35-129) 06/03/16 16:27 Total Protein 7.9 g/dL (6.3-8.2) 06/03/16 16:27 Albumin 3.9 g/dL (3.9-5) 06/03/16 16:27 Albumin/Globulin Ratio 1.0 % 06/03/16 16:27 Lipase 141 units/L (13-60) H 06/04/16 00:20 Blood Type O POSITIVE 06/03/16 16:15 Antibody Screen Negative 06/03/16 16:15
[2016-06-06] MEDS: LOVENOX SUB-Q SCH (22:06)
[2016-06-06] MEDS ORDERED: ROBITUSSIN DM PO PRN (22:11)
[2016-06-07] MEDS: PERCOCET 5/325 PO PRN ×4 (03:05→21:23)
--- NOTE | 2016-06-07 09:43 | Progress Note ---
Assessment and Plan 1. Acute PE/acute LLE DVT; concern for hypercoagulable state in setting of possible pancreatic malignancy. Echocardiogram done. 2. Pancreatic mass/liver nodules. Being evaluated by GI 3. HTN Recommendations Continue standard anticoagulation. Follow-up on GI workup Ambulate patient on room air and monitor oximetry Check echocardiogram results Subjective Date of service: 06/07/16 Principal diagnosis: pulmonary embolism, pancreatic lesion Interval history: Patient reports today no respiratory distress reported. No bleeding. Sporadic cough no expectoration. No fever reported. Objective Vital Signs - 12hr 06/07/16 06/07/16 06/07/16 00:46 04:00 05:27 Temperature 98.8 F 98.5 F Pulse Rate 64 Pulse Rate [ Apical] Pulse Rate [ 70 67 Right] Respiratory 20 20 Rate Respiratory Rate [Left Calf ] Blood Pressure 148/85 142/77 [Right Arm] O2 Sat by Pulse 98 96 Oximetry 06/07/16 06/07/16 06/07/16 07:30 08:07 08:09 Temperature 97.8 F Pulse Rate Pulse Rate [ 74 Apical] Pulse Rate [ 58 L Right] Respiratory 18 18 Rate Respiratory 18 Rate [Left Calf ] Blood Pressure 131/76 [Right Arm] O2 Sat by Pulse 98 98 Oximetry Constitutional: no acute distress, alert Eyes: non-icteric ENT: oropharynx moist Neck: supple Effort: normal Ascultation: Bilateral: clear Cardiovascular: regular rate and rhythm Gastrointestinal: normoactive bowel sounds, soft, non-tender, non-distended Integumentary: normal Extremities: no cyanosis, pink and warm, edema (non-pitting edema LLE) Neurologic: normal mental status, non-focal exam, pupils equal and round, CN II- XII normal Psychiatric: mood appropriate, affect normal CBC and BMP: 06/05/16 05:05 06/05/16 05:05 ABG, PT/INR, D-dimer: PT/INR, D-dimer PT 14.7 Sec. (12.2-14.9) 06/03/16 16:27 INR 1.16 (0.87-1.13) H 06/03/16 16:27 Abnormal lab findings: Abnormal Labs 06/04/16 06/04/16 06/05/16 12:24 16:28 05:05 RBC 3.51 L Hgb 10.5 L Hct 31.9 L [place] % (Auto) 9.5 H Eos % (Auto) 8.0 H Eos # 0.5 H Glucose POC Glucose 176 H 62 L 06/05/16 06/05/16 06/05/16 05:05 07:19 11:53 RBC Hgb Hct [place] % (Auto) Eos % (Auto) Eos # Glucose 119 H POC Glucose 117 H 172 H 06/05/16 06/06/16 06/06/16 20:59 08:03 11:55 RBC Hgb Hct [place] % (Auto) Eos % (Auto) Eos # Glucose POC Glucose 133 H 128 H 159 H 06/06/16 06/06/16 06/06/16 13:22 15:40 17:02 RBC Hgb Hct [place] % (Auto) Eos % (Auto) Eos # Glucose POC Glucose 176 H 126 H 108 H 06/06/16 20:40 RBC Hgb Hct [place] % (Auto) Eos % (Auto) Eos # Glucose POC Glucose 107 H
[2016-06-07] MEDS: COZAAR PO SCH (10:22)
[2016-06-07] MEDS: NOVOLOG SUB-Q SCH ×4 (10:22→21:24)
[2016-06-07] MEDS: LOVENOX SUB-Q SCH ×2 (10:22→21:23)
--- NOTE | 2016-06-07 10:35 | Event Note ---
Date: 06/07/16 Pt to be discharged today on home Lovenox. I will contact my colleagues at [facility] tomorrow so that they may reach out to Mr. Alejandro to schedule an EUS to evaluate/diagnose the pancreatic mass.
--- NOTE | 2016-06-07 12:59 | Discharge Summary ---
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 HEENT: Normocephalic. Atraumatic. No conjunctival congestion or icterus. Patient has moist mucous membranes. NECK: Supple. Trachea midline. CHEST/LUNGS: Clear to auscultated bilaterally, breathing nonlabored. No wheezes crackles or rhonchi. HEART/CARDIOVASCULAR: Regular in rate and rhythm. S1 and S2 positive. ABDOMEN: Abdomen is soft, nontender. Patient has normal bowel sounds. SKIN: There is no rash. Warm and dry. NEURO: No focal motor deficit. Follows command. MUSCULOSKELETAL: No joint effusion or tenderness. EXTRIMITY: No edema, no cyanosis or clubbing. PSYCH: Cooperative. - Constitutional Vitals: Temp Pulse Resp BP Pulse Ox 97.8 F 58 L 20 131/76 98 06/07/16 07:30 06/07/16 10:22 06/07/16 11:27 06/07/16 10:22 06/07/16 08:09 Plan Activity: fall precautions Weight Bearing Status: Non-Weight Bearing Diet: regular Follow up with: PRIMARY MD CONCHITA [Primary Care Provider] - 3-5 Days RAFFI BAH MD [Staff Physician] - 3-5 Days Prescriptions: Apixaban [Eliquis] 5 mg PO DAILY #74 tablet oxyCODONE /ACETAMINOPHEN [Percocet 5/325 mg] 1 tab PO Q6H PRN #30 tablet PRN Reason: Pain, Moderate (4-6)
--- NOTE | 2016-06-07 14:29 | Echocardiography Report ---
Transthoracic Echocardiogram Indication: Acute PE BP: 142/77 Conclusions *Global left ventricular systolic function is normal. *The estimated ejection fraction is 55-60%. Findings Left Ventricle: The left ventricular chamber size is normal. Global left ventricular wall motion and contractility are within normal limits. Global left ventricular systolic function is normal. The estimated ejection fraction is 55-60%. Normal left ventricular diastolic filling is observed. Left Atrium: The left atrium is normal in size with no visual thrombus identified. Right Ventricle: The right ventricular cavity size is normal. The right ventricular global systolic function is normal. Right Atrium: The right atrium appears normal. The interatrial septum appears normal. Aortic Valve: The aortic valve structure is normal. There is no evidence of aortic regurgitation. There is no evidence of aortic stenosis. Mitral Valve: The mitral valve leaflets appear normal. There is mild mitral regurgitation. There is no evidence of mitral stenosis. Tricuspid Valve: The tricuspid valve leaflets are normal. There is mild tricuspid regurgitation. The right ventricular systolic pressure is calculated at 36 mmHg. There is evidence of mild pulmonary hypertension. There is no tricuspid stenosis. Pulmonic Valve: The pulmonic valve appears normal. There is trace pulmonic regurgitation. There is no pulmonic stenosis. Pericardium: There is no pericardial effusion. Aorta: There is no dilatation of the ascending aorta. There is no dilatation of the aortic arch. There is no dilatation of the descending thoracic aorta. There is no dilatation of the aortic root. Venous: The inferior vena cava appears normal in size. Measurements Chambers MM Name Value Normal Range Ao root diameter (MM) 3 cm (2 - 3.7) LA dimension (AP) MM 3.4 cm (1.9 - 4) LA:Ao ratio (MM) 1.13 ratio - AV cusp separation (MM) 1.9 cm (1.5 - 2.6) Chambers 2D Name Value Normal Range RVIDd (AP) 2D 3.7 cm (0.9 - 2.6) IVSd (2D) 1.05 cm (0.6 - 1.1) LVPWd (2D) 1 cm (0.6 - 1.1) IVS:LVPW ratio (2D) 1.05 ratio - LVIDd (2D) 4.87 cm (3.7 - 5.6) LVIDs (2D) 2.95 cm (2 - 3.8) LV FS (Teichholz) (2D) 39.4 % - LV FS (cube) (2D) 39.4 % - EF Teichholz (2D) 69.7 % - LA dimension (AP) 2D 3.5 cm (1.9 - 4) Volumes/Mass Name Value Normal Range LA ESV SP 4CH (MOD) 44 ml - LA ESV SP 2CH (MOD) 61 ml - LA ESV BP (MOD) 55 ml - LA ESV BP (MOD) index 24.2 ml/m2 - LV EDV SP 4CH (MOD) 70 ml - LV ESV SP 4CH (MOD) 22 ml - EF SP 4CH (MOD) 69 % - LV EDV SP 2CH (MOD) 75 ml - LV ESV SP 2CH (MOD) 22 ml - EF SP 2CH (MOD) 71 % - LV EDV BP 74 ml - LV ESV BP 22 ml - BP EF (MOD) 70 % - Diastolic/Systolic Function Name Value Normal Range MV E-wave Vmax 1.05 m/sec - MV deceleration time 180 msec - MV A-wave Vmax 0.86 m/sec - MV E:A ratio 1.2 ratio - LV septal e' Vmax 0.12 m/sec - LV lateral e' Vmax 0.12 m/sec - LV E:e' septal ratio 8.7 ratio - LV E:e' lateral ratio 8.5 ratio - Aortic Valve Name Value Normal Range AV VTI 39.3 cm - AV mean gradient 8 mmHg - LVOT diameter 2 cm - LVOT VTI 26.3 cm - LVOT mean gradient 4 mmHg - SV LVOT 83 ml - JUNE (continuity VTI) 2.1 cm2 - Mitral Valve Name Value Normal Range MV PHT 46 msec - MR Vmax 5.39 m/sec - MVA (PHT) 4.78 cm2 - Tricuspid Valve Name Value Normal Range TR Vmax 2.86 m/sec - TR peak gradient 33 mmHg - RAP 3 mmHg - RVSP 36 mmHg - Pulmonic Valve/Qp:Qs Name Value Normal Range PV Vmax 1.08 m/sec - PV peak gradient 5 mmHg - ND end-diastolic Vmax 0.9 m/sec - RVOT diameter 3.2 cm - PV acceleration time 120 msec -
--- NOTE | 2016-06-07 19:08 | Progress Note ---
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 Medical records and medication list reviewed. No acute event overnight noted by the RN. Patient denies any chest pain or difficulty breathing. Patient is tolerating diet. No acute bleeding episode. Patient was suggested that they have about $400 co-pay for the Lovenox and they won't be able to pay for it, supportive employment case manager notified. Discussed plan of care at bedside with patient. Hospitalist Physical - Constitutional Vitals: Temp Pulse Resp BP Pulse Ox 98 F 63 20 141/83 96 06/07/16 17:00 06/07/16 17:00 06/07/16 17:56 06/07/16 17:00 06/07/16 17:00 Results - Labs CBC & Chem 7: 06/05/16 05:05 06/05/16 05:05 Labs: Laboratory Last Values WBC 6.4 K/mm3 (4.5-11.0) 06/05/16 05:05 RBC 3.51 M/mm3 (3.65-5.03) L 06/05/16 05:05 Hgb 10.5 gm/dl (11.8-15.2) L 06/05/16 05:05 Hct 31.9 % (35.5-45.6) L 06/05/16 05:05 MCV 91 fl (84-94) 06/05/16 05:05 MCH 30 pg (28-32) 06/05/16 05:05 MCHC 33 % (32-34) 06/05/16 05:05 RDW 13.4 % (13.2-15.2) 06/05/16 05:05 Plt Count 196 K/mm3 (140-440) 06/05/16 05:05 Lymph % (Auto) 32.7 % (13.4-35.0) 06/05/16 05:05 Lawrence % (Auto) 9.5 % (0.0-7.3) H 06/05/16 05:05 Eos % (Auto) 8.0 % (0.0-4.3) H 06/05/16 05:05 Baso % (Auto) 0.4 % (0.0-1.8) 06/05/16 05:05 Lymph # 2.1 K/mm3 (1.2-5.4) 06/05/16 05:05 Lawrence # 0.6 K/mm3 (0.0-0.8) 06/05/16 05:05 Eos # 0.5 K/mm3 (0.0-0.4) H 06/05/16 05:05 Baso # 0.0 K/mm3 (0.0-0.1) 06/05/16 05:05 Seg Neutrophils % 49.4 % (40.0-70.0) 06/05/16 05:05 Seg Neutrophils # 3.2 K/mm3 (1.8-7.7) 06/05/16 05:05 PT 14.7 Sec. (12.2-14.9) 06/03/16 16:27 INR 1.16 (0.87-1.13) H 06/03/16 16:27 APTT 29.4 Sec. (24.2-36.6) 06/03/16 16:27 Sodium 140 mmol/L (137-145) 06/05/16 05:05 Potassium 3.9 mmol/L (3.6-5.0) 06/05/16 05:05 Chloride 102.1 mmol/L (98-107) 06/05/16 05:05 Carbon Dioxide 24 mmol/L (22-30) 06/05/16 05:05 Anion Gap 18 mmol/L 06/05/16 05:05 BUN 13 mg/dL (9-20) 06/05/16 05:05 Creatinine 0.8 mg/dL (0.8-1.5) 06/05/16 05:05 Estimated GFR > 60 ml/min 06/05/16 05:05 BUN/Creatinine Ratio 16.25 % 06/05/16 05:05 Glucose 119 mg/dL (75-100) H 06/05/16 05:05 POC Glucose 96 (70-105) 06/07/16 16:30 Calcium 8.5 mg/dL (8.4-10.2) 06/05/16 05:05 Total Bilirubin 0.4 mg/dL (0.1-1.2) 06/03/16 16:27 AST 17 units/L (5-40) 06/03/16 16:27 ALT 15 units/L (7-56) 06/03/16 16:27 Alkaline Phosphatase 46 units/L (35-129) 06/03/16 16:27 Total Protein 7.9 g/dL (6.3-8.2) 06/03/16 16:27 Albumin 3.9 g/dL (3.9-5) 06/03/16 16:27 Albumin/Globulin Ratio 1.0 % 06/03/16 16:27 Lipase 141 units/L (13-60) H 06/04/16 00:20 Blood Type O POSITIVE 06/03/16 16:15 Antibody Screen Negative 06/03/16 16:15
--- NOTE | 2016-06-08 10:15 | Consultation ---
REASON FOR CONSULTATION: Bilateral DVT and pancreatic mass. HISTORY OF PRESENT ILLNESS: Obtained from the patient, his at bedside, and also the chart. A 55-year-old -[place] male who has been followed by his primary care physician for " diabetes, came to the Emergency Room with complaints of left-sided pleuritic chest pain and shortness of breath for approximately 2 weeks. He has had swelling of his lower extremities for about 2 weeks, which has worsened over the past several days and causing him to have difficulty ambulating. The patient and his had recent travel to [place] where he was seen there and discharged from the Emergency Room. His primary care physician on the day of admission sent him to the ER for Doppler of the lower extremity, which came back positive for DVT. The patient states that even before he went to [place], the back of his right leg began aching. He admits that he sits and plays cards for hours. He denies any abdominal pain, any weight loss, any nausea, vomiting, changes in bowel habits, or any other symptoms. Other than the shortness of breath and lower extremity pain and swelling, he has felt fine. PAST MEDICAL HISTORY: Appendectomy, neck surgery. SOCIAL HISTORY: Never smoked. No alcohol or recreational drug use. 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 FAMILY HISTORY: Hypertension. No diabetes, no cancer. ALLERGIES: Honey causes nausea. HOME MEDICATIONS: Losartan 25 mg daily. REVIEW OF SYSTEMS: GENERAL: No weight loss. Appetite has been good. HEENT: No eye pain, no ear pain, no sore throat. He is status post neck surgery. LUNGS: See HPI. CARDIOVASCULAR: No chest pain other than related to pleuritic chest pain. GASTROINTESTINAL: No abdominal pain, no nausea, no vomiting. Bowel movement are normal in color, volume, and frequency. EXTREMITIES: The pain in his lower extremities has improved since being started on the blood thinner. MUSCULOSKELETAL: No new aches and pains. states that she feels that he has had some loss of muscle mass. IMAGING: CT scan of the abdomen shows ill defined multifocal hypodense mass involving most of the pancreatic head extending into the uncinate process approximately 3 x 3 cm in the anterior head and a 3.5 x 2 cm in the uncinate process respectively. Pancreatic duct dilatation noted distal to this region measuring up to 6-7 mm in diameter, loss of normal fat planes in the adjacent pancreatic or duodenal region, enlarged lymph nodes in the surrounding central mesentery measuring up to 2 cm in maximal diameter, subtle subcentimeter hypodense foci x 2 in the liver of uncertain etiology, metastatic disease cannot be completely excluded. CTA of the chest done same date 06/03/2016 shows compatible bilateral pulmonary emboli, mild clot burden. LABORATORY DATA: Hemoglobin 11.9, hematocrit 34.9, MCV of 91, white count of 8.8, and platelet count of 185 on 06/03/2016. Glucose 127. PHYSICAL EXAMINATION: VITAL SIGNS: Well-nourished, well developed -Sw[place] male, lying supine. is at bedside. The patient is not in any distress. HEENT: He is normocephalic, atraumatic. Sclerae is anicteric. Trachea is midline. LUNGS: His lungs were clear in all lung dent. Respirations were nonlabored. HEART: Regular rate and rhythm. Normal S1, S2. ABDOMEN: Mildly obese. Bowel sounds present. Soft, nontender. No palpable liver, masses, no tenderness. SKIN: Warm, dry, no rash noted. NEUROLOGIC: He was awake, alert, oriented, and appropriate. PSYCHIATRIC: He was appropriate to mood, affect, and cooperative. Labs as already noted, his BUN 13, creatinine 0.8. ASSESSMENT: 1. Bilateral deep venous thrombosis and pulmonary embolism. The patient has been started on Eliquis by primary team. 2. Pancreatic mass of the head of the pancreas with associated adenopathy per CT scan, highly suspicious for carcinoma, resulting in hypercoagulable state. GI following. Dr. Mcguire has already given the patient contact and appointment to undergo a biopsy of pancreatic mass at [facility] is being arranged. CA 19-9 and a CEA have also been ordered as per Dr. Mcguire. Depending on the findings of the biopsy, the patient will be referred to Dr. Etlon Hawley who is a hepatobiliary surgeon at [facility]. 3. Mild anemia, likely related to malignancy. Further recommendations will follow. The patient has been given contact information to follow up with me as an outpatient once he has completely biopsy. JOB# [id number] [facility] [place]
[2016-06-08] MEDS: NOVOLOG SUB-Q SCH (11:04)
[2016-06-08] MEDS: COZAAR PO SCH (11:08)
[2016-06-08] MEDS: LOVENOX SUB-Q SCH (11:08)
[2016-06-08] MEDS: PERCOCET 5/325 PO PRN (11:23)
[2016-06-08 13:50] VITALS: BP 173/83
[2016-06-11] MEDS ORDERED: ELIQUIS PO SCH (10:00)
== END 2016-06-08 14:30 | disposition home or self-care (01) | DRG 299 ==
LOC: ED 15:50 → 4A 06-04 02:26
PROVIDERS: ADMIT Internal Medicine; ATTEND Internal Medicine
DX: I82.402 Acute embolism and thrombosis of unspecified deep veins of left lower extremity (principal); I26.99 Other pulmonary embolism without acute cor pulmonale; C25.9 Malignant neoplasm of pancreas, unspecified; D68.59 Other primary thrombophilia; M54.12 Radiculopathy, cervical region; I10 Essential (primary) hypertension; E11.9 Type 2 diabetes mellitus without complications; D64.9 Anemia, unspecified; Z91.018 Allergy to other foods; Z98.890 Other specified postprocedural states; Z82.49 Family history of ischemic heart disease and other diseases of the circulatory system; Z90.49 Acquired absence of other specified parts of digestive tract
CPT/HCPCS: 36415; 71275; 74177; 80048; 80053; 82378; 82962; 83690; 85025; 85610; 85730; 86301; 86850; 86900; 86901; 93306; 96361; 96372; 96374; 96375; J1650; J1815; J1885; J2270; J7030; Q9967